=== PATIENT | female | born 2000 | race Caucasian/White ===

== ENCOUNTER 2025-11-19 14:07 | Emergency (ER) | payer OTHER ==
[~2025-11-19] VITALS: Ht 172.7 cm; Wt 164.5 kg
[2025-11-19] MEDS ORDERED: OSEL75CA PO (17:04)
[2025-11-19 17:13] VITALS: BP 138/70; TEMP 97.4; O2SAT 97
== END 2025-11-19 17:13 | disposition home or self-care (01) ==
LOC: M ED 14:07
DX: O99.513 Diseases of the respiratory system complicating pregnancy, third trimester (principal); J06.9 Acute upper respiratory infection, unspecified; Z3A.37 37 weeks gestation of pregnancy